=== PATIENT | female | born 1960 | race Caucasian/White ===

== ENCOUNTER → 2021-08-12 | Outpatient (CLI) | payer OTHER ==
--- NOTE | 2021-08-14 11:11 | RAD ---
EXAM: ULTRASOUND SOFT TISSUE NECK CLINICAL HISTORY: Reason: LT FACIAL SWELLING / Spl. Instructions: / History: COMPARISON: None available. TECHNIQUE: Ultrasound examination of the left submandibular region was performed FINDINGS: Sonographic evaluation of the left submandibular region was performed in the area of palpable concern . There is a cyst in the left submandibular area posterior to the left ear measuring 0.41 cm with adjac ent 2.7 mm lymph node adjacent to the cyst. There is also an elongated complex cyst measuring 5.7 mm in the near vicinity. Several mildly enlarged lymph nodes are seen in the left submandibular region, largest measuring 2.6 cm. IMPRESSION: Cyst, complex cyst as well as mildly enlarged lymph nodes seen in the left submandibular region perha ps correspond to the area of palpable concern. If symptoms persist, evaluation with CT soft tissue ne ck /face may be obtained to further evaluate. Electronically signed by: Cristina Figueroa MD (08/14/2021 11:08 AM) [facility]
== END ==
LOC: US 14:20
PROVIDERS: ATTEND Family Medicine
DX: R22.0 Localized swelling, mass and lump, head (principal)
CPT/HCPCS: 76536